=== PATIENT | female | born 1935 | race Caucasian/White ===

== ENCOUNTER 2017-08-28 16:12 | Emergency (ER) | payer MEDICARE, SELFPAY ==
[2017-08-28 16:13] VITALS: BP 142/64; PULSE 64; RESP 14; TEMP 36.9; O2SAT 97; BMI 24.6
[2017-08-28 16:16] VITALS: O2SAT 97
--- NOTE | 2017-08-28 16:23 | CT_ITS ---
STUDY: CT BRAIN WITHOUT CONTRAST REASON FOR EXAM: Female, 81 years old. Fall at [facility] living. RADIATION DOSAGE (If Supplied By Facility): CTDIvol = ( 60.81 ) mGy, DLP = ( 1112.69 ) mGycm TECHNIQUE: Transaxial CT imaging of the brain was performed without administration of intravenous contrast material. Individualized dose optimization techniques were used for this CT. COMPARISON: August 26, 2016. FINDINGS: Normal soft tissue structures. Normal calvarium. There is moderate cerebral atrophy with widening of the extra-axial spaces and ventricular dilatation. Normal white matter tracts of the cerebral hemispheres. Normal basal ganglia and thalami. Normal brainstem. Normal cerebellum. There is no intracranial hemorrhage. There are no findings of an acute ischemic infarction. Normal visualized paranasal sinuses. CT/Brain/Head without Contrast IMPRESSION: Chronic involutional changes of the brain. No hemorrhage. Electronically Signed: Driss Suazo MD at 16:59 EST , Service support ,
--- NOTE | 2017-08-28 16:23 | CT_ITS ---
STUDY: CT CERVICAL SPINE WITHOUT CONTRAST REASON FOR EXAM: Female, 81 years old. Fall. Dementia. Neck pain. RADIATION DOSAGE (If Supplied By Facility): CTDIvol = ( 18.91 ) mGy, DLP = ( 363.93 ) mGycm TECHNIQUE: High resolution transaxial imaging was performed without contrast material. Sagittal and coronal images were reconstructed. Individualized dose optimization techniques were used for this CT. COMPARISON: None FINDINGS: Normal craniovertebral junction. There are degenerative changes of the anterior atlantoaxial articulation. Normal odontoid process. Normal cervical lordosis. There is grade 1 anterior listhesis at C4-5 and C5-6. Normal vertebral bodies and posterior osseous elements. There is no fracture. C2-3: Normal endplates. Normal disc height and morphology. Normal central canal and intervertebral neuroforamina. Facet spurring C3-4: Normal endplates. Normal disc height and morphology. Normal central canal and intervertebral neuroforamina. Facet spurring. C4-5: Disc bulge with mild spurring. Facet spurring. Right foraminal narrowing. C5-6: Normal endplates. Normal disc height and morphology. Normal central canal and intervertebral neuroforamina. Facet spurring on the right C6-7: Disc space narrowing. Disc bulge and spurring. Left foraminal narrowing. C7-T1: Normal endplates. Normal disc height and morphology. Normal central canal and intervertebral neuroforamina. There are atherosclerotic calcifications. There is 3.0 cm diminished density left thyroid nodule. CT/Spine Cervical without Contras IMPRESSION: Multilevel degenerative changes, as described above. Electronically Signed: Driss Suazo MD at 17:05 EST , Service support ,
--- NOTE | 2017-08-28 16:26 | ED.VISSUMM ---
- ER Visit Summary Date of Service: 08/28/17 Chief Complaint: Fall with neck pain History of Present Illness: The patient is a 81 F with a history of Alzheimer's dementia. [facility] There is no loss of consciousness. Report is that the patient was complaining of some neck pain. She is not on any anticoagulants. Physical Examination: Vital signs are unremarkable. Head neck examination was a small hematoma in the left posterior parietal scalp. No lacerations are noted. She has mild C-spine tenderness on exam. Heart is regular rate and rhythm. Lung sounds are clear. Abdomen is soft nontender. Patient is moving all 4 extremities without difficulty. Test Results: CT scan of the head reveals chronic involutional changes. CT the C-spine shows multilevel degenerative changes. Emergency Department Course and Treatment: Patient is resting comfortably on repeat exam. Patient be discharged back to her ECF. I have asked nursing staff to verify that this is her baseline mental status with her dementia. Treatment Plan: [] Disposition: Discharge Impression: Witnessed fall with closed head injury This note was generated with [employer] dictation software. It may contain incorrect words, spelling, and punctuation that were not noted in review of the chart prior to signing ED Disposition - Plan for ED Patient: Chief Complaint: Fall Referrals: Ruma Gutiérrez MD [Primary Care Provider] -
--- NOTE | 2017-08-28 17:27 | ED.DEP ---
ED Disposition - Plan for ED Patient: Disposition: Home or Assisted Living Chief Complaint: Fall Instructions: ED Mechanical Fall, ED Head Injury Closed Referrals: Ruma Gutiérrez MD [Primary Care Provider] - As Needed
[2017-08-28 17:40] VITALS: BP 130/68; PULSE 66; RESP 16; O2SAT 98
--- NOTE | 2017-08-28 17:42 | ED.RN ---
report called to nurse Hawthorne at [place]. Updated that all scans are negative, and that d/c instructions are in packet. Denies any questions
== END 2017-08-28 18:10 | disposition home or self-care (01) ==
PROVIDERS: Emergency Provider Emergency Medicine; Family Provider Family Medicine; PCP Family Medicine
DX: S00.03XA Contusion of scalp, initial encounter (principal); W19.XXXA Unspecified fall, initial encounter; Y93.9 Activity, unspecified; Y92.129 Unspecified place in nursing home as the place of occurrence of the external cause; Y99.9 Unspecified external cause status; G30.9 Alzheimer's disease, unspecified; F02.80 Dementia in other diseases classified elsewhere, unspecified severity, without behavioral disturbance, psychotic disturbance, mood disturbance, and anxiety; K21.9 Gastro-esophageal reflux disease without esophagitis; F32.9 Major depressive disorder, single episode, unspecified; F41.9 Anxiety disorder, unspecified; Z79.899 Other long term (current) drug therapy
CPT/HCPCS: 70450; 72125; 99284

== ENCOUNTER → 2017-09-06 06:30 | Outpatient (REF) | payer MEDICARE, SELFPAY ==
[2017-09-06 08:39] LABS: Color, Urine Yellow (Yellow); Glucose, Dipstick Normal (Normal); Ketone-Dipstick Negative (Negative); Leukocyte Esterase-Dipstick 500 /ul (Negative); Nitrite-Dipstick Positive (Negative); Occult Blood-Urine 25 /ul (Negative); Protein-Dipstick Negative (Negative); Specific Gravity, Urine 1.015 (1.002-1.030); Urine Bilirubin Dipstick Negative (Negative); Urine Clarity Cloudy (Clear); Urine Urobilinogen Normal (Normal)
== END ==
LOC: OLS.BROOKB 06:30
PROVIDERS: Visit Provider Family Medicine
DX: N39.0 Urinary tract infection, site not specified (principal)
CPT/HCPCS: 81002; 87086; 87088; 87186

== ENCOUNTER 2017-10-24 05:51 | Emergency (ER) | payer MEDICARE, SELFPAY ==
[2017-10-24 05:52] VITALS: BP 119/58; PULSE 58; RESP 18; TEMP 36.6; O2SAT 98; BMI 23.6
--- NOTE | 2017-10-24 05:52 | CT_ITS ---
STUDY: CT BRAIN WITHOUT CONTRAST REASON FOR EXAM: Female, 81 years old. Status post fall. Large bump to the left posterior head. History of dementia. RADIATION DOSAGE (If Supplied By Facility): CTDIvol = ( 44.99 ) mGy, DLP = ( 829.85 ) mGycm TECHNIQUE: Transaxial CT imaging of the brain was performed without administration of intravenous contrast material. Individualized dose optimization techniques were used for this CT. COMPARISON: 08/28/2017. FINDINGS: There is a left posterior scalp contusion. Normal calvarium. There is moderate cerebral atrophy with widening of the extra-axial spaces and ventricular dilatation. There are areas of decreased attenuation within the white matter tracts of the supratentorial brain, consistent with microvascular disease changes. Normal basal ganglia and thalami. Normal brainstem. Normal cerebellum. There is atherosclerotic calcification of the vertebral and cavernous carotid arteries. There is no intracranial hemorrhage. There are no findings of an acute ischemic infarction. There is a small polyp or retention cyst in the right maxillary sinus and there is mild mucoperiosteal thickening in bilateral ethmoid sinuses, consistent with chronic disease. There is no evidence for acute sinusitis. CT/Brain/Head without Contrast IMPRESSION: Chronic involutional changes of the brain. No demonstrated acute intracranial process. Electronically Signed: Sharad Wilcox MD at 6:40 EDT , Service support ,
--- NOTE | 2017-10-24 05:52 | CT_ITS ---
STUDY: CT CERVICAL SPINE WITHOUT CONTRAST REASON FOR EXAM: Female, 81 years old. Status post fall. Large bump in the left posterior head. Dementia. RADIATION DOSAGE (If Supplied By Facility): CTDIvol = ( 13.72 ) mGy, DLP = ( 254.35 ) mGycm TECHNIQUE: High resolution transaxial imaging was performed without contrast material. Sagittal and coronal images were reconstructed. Individualized dose optimization techniques were used for this CT. COMPARISON: 08/28/2017. FINDINGS: Normal craniovertebral junction. There is hypertrophy of the transverse ligament of the atlas with mild posterior displacement of the superior and inferior longitudinal fibers of the cruciform ligament, producing minimal ventral thecal sac flattening, but without cervical cord impingement. There are degenerative changes in the anterior atlantoaxial articulation. Normal odontoid process. Normal cervical lordosis. Normal vertebral bodies and posterior osseous elements. C2-3: Normal endplates. Small broad posterior disc protrusion. Degenerative changes bilateral apophyseal joints.. Normal central canal and intervertebral neuroforamina. C3-4: 1 mm anterolisthesis, on a degenerative basis. Normal endplates. Small broad posterior disc protrusion. Degenerative changes apophyseal joints.. Normal central canal. Mild narrowing bilateral intervertebral neuroforamina. C4-5: 2 mm anterolisthesis, on a degenerative basis. Spondylosis.. Normal disc height and morphology. Degenerative changes of uncovertebral and apophyseal joints. Normal central canal. Moderate narrowing right and normal left intervertebral neuroforamina. C5-6: 2 mm anterolisthesis, on a degenerative basis. Spondylosis.. Normal disc height and morphology. Degenerative changes uncovertebral joints and apophyseal joints. Normal central canal. Mild narrowing right and normal left intervertebral neuroforamina. C6-7: 1 mm anterolisthesis, on a degenerative basis. Spondylosis. Disc space narrowing. Small broad posterior disc osteophyte complex. Degenerative changes uncovertebral joints and apophyseal joints.. Normal central canal. Normal right and mild narrowing left intervertebral neuroforamina. C7-T1: Normal endplates. Normal disc height and morphology. Degenerative changes apophyseal joints. Normal central canal and intervertebral neuroforamina. Normal visualized soft tissue structures. CT/Spine Cervical without Contras IMPRESSION: Multilevel degenerative changes, as described above. No demonstrated fracture. Electronically Signed: Sharad Wilcox MD at 6:50 EDT , Service support ,
--- NOTE | 2017-10-24 05:54 | ED.DCSUM_ITS ---
- ER Visit Summary Date of Service: 10/24/17 Chief Complaint: [] Fall with head injury History of Present Illness: The patient is a 81 F patient was found outside her room on the ground. She has a history of dementia and does not remember what happened. They noted she had a goose egg on the back of her head. She had some isolated soreness to this area. Denies any neck pain. She has no recollection of what happened. Physical Examination: Vital signs reviewed General: Well-nourished well-developed Head: 3 cm x 3 cm circular golf ball size hematoma left posterior parietal scalp. Eyes: Pupils equal round and reactive to light extraocular movements intact ENT: TMs clear no hemotympanum no trauma Neck: Nontender full range of motion Cardiovascular: Regular rate rhythm no murmurs normal S1-S2 Respiratory: No distress clear to auscultation bilaterally chest nontender Abdomen: Soft nontender nondistended normal bowel sounds no masses Back: Nontender no CVA tenderness Extremities: Nontender active range of motion ?4 extremities no trauma Skin: Normal color no trauma Neuro alert oriented cranial nerves II through XII intact normal strength sensation reflexes Test Results: [] Emergency Department Course and Treatment: [] CT head and neck obtained. There are negative. X-ray of the elbow shows nothing acute. at Time I do not feel the patient is lab work or further imaging. She will follow-up as an outpatient. Treatment Plan: [] Disposition: [] Impression: [] Scalp hematoma status post fall Left elbow skin tear abrasion status post fall Head injury status post fall This note was generated with [employer] dictation software. It may contain incorrect words, spelling, and punctuation that were not noted in review of the chart prior to signing ED Disposition - Plan for ED Patient: Chief Complaint: Fall Referrals: Ruma Gutiérrez MD [Primary Care Provider] -
--- NOTE | 2017-10-24 05:59 | RAD_ITS ---
STUDY: X-RAY - LEFT ELBOW REASON FOR EXAM: Female, 81 years old. Status post fall. Posterior elbow skin tear. TECHNIQUE: 4 view(s) of the elbow. COMPARISON: None. FINDINGS: Normal visualized humerus, radius and ulna. Normal radiocapitellar and ulnotrochlear articulations. There is a skin calcification the medial upper arm. RAD/Elbow min 3 Views IMPRESSION: Normal x-ray examination of the elbow. Electronically Signed: Sharad Wilcox MD at 6:53 EDT , Service support ,
--- NOTE | 2017-10-24 06:20 | ED.DEP ---
ED Disposition - Plan for ED Patient: Disposition: Home or Assisted Living Chief Complaint: Fall Instructions: ED Fall Uncertain Cause, ED Hematoma, ED Head Injury Closed Referrals: Ruma Gutiérrez MD [Primary Care Provider] -
[2017-10-24] MEDS: Acetaminophen 325 MG Tablet 650 MG PO (06:47)
--- NOTE | 2017-10-24 07:11 | NURSING ---
ATTEMPTED TO NOTIFY NEXT OF KIN AND PERSON TO NOTIFY, BOTH PHONE NUMBERS ARE LAW OFFICES; NO ANSWER WHEN CALLED.
[2017-10-24 08:02] VITALS: BP 145/61; PULSE 64; RESP 14; TEMP 36.3; O2SAT 98
== END 2017-10-24 08:04 | disposition home or self-care (01) ==
PROVIDERS: Emergency Provider Emergency Medicine; Family Provider Family Medicine; PCP Family Medicine
DX: S00.03XA Contusion of scalp, initial encounter (principal); S51.012A Laceration without foreign body of left elbow, initial encounter; W18.30XA Fall on same level, unspecified, initial encounter; Y93.9 Activity, unspecified; Y92.9 Unspecified place or not applicable; Y99.9 Unspecified external cause status; Z79.899 Other long term (current) drug therapy
CPT/HCPCS: 70450; 72125; 73080; 99284

== ENCOUNTER → 2018-01-11 15:30 | Outpatient (REF) | payer MEDICARE, SELFPAY ==
[2018-01-11 21:51] LABS: Color, Urine Yellow (Yellow); Glucose, Dipstick Normal (Normal); Ketone-Dipstick Negative (Negative); Leukocyte Esterase-Dipstick 500 /ul (Negative); Nitrite-Dipstick Positive (Negative); Occult Blood-Urine 50 /ul (Negative); Protein-Dipstick Negative (Negative); Specific Gravity, Urine 1.025 (1.002-1.030); Urine Bilirubin Dipstick Negative (Negative); Urine Clarity Sl. Cloudy (Clear); Urine Urobilinogen Normal (Normal)
== END ==
PROVIDERS: Visit Provider Family Medicine
DX: N39.0 Urinary tract infection, site not specified (principal)
CPT/HCPCS: 81002; 87077; 87086; 87088; 87186

== ENCOUNTER → 2018-01-26 13:00 | Outpatient (REF) | payer MEDICARE, SELFPAY ==
[2018-01-27 07:49] LABS: Color, Urine Yellow (Yellow); Glucose, Dipstick Normal (Normal); Ketone-Dipstick Negative (Negative); Leukocyte Esterase-Dipstick 25 /ul (Negative); Nitrite-Dipstick Negative (Negative); Occult Blood-Urine 25 /ul (Negative); Protein-Dipstick Negative (Negative); Urine Bilirubin Dipstick Negative (Negative); Urine Clarity Clear (Clear); Urine Urobilinogen Normal (Normal)
== END ==
LOC: OLS.BROOKB 13:00
PROVIDERS: Visit Provider Family Medicine
DX: N39.0 Urinary tract infection, site not specified (principal)
CPT/HCPCS: 81002; 87086; 87088

== ENCOUNTER 2018-02-25 07:17 | Emergency (ER) | payer MEDICARE, SELFPAY ==
[2018-02-25 07:18] VITALS: BP 160/54; PULSE 50; RESP 16; TEMP 37.3; O2SAT 97; BMI 25.5
--- NOTE | 2018-02-25 07:26 | RAD_ITS ---
STUDY: X-RAY - PELVIS AND RIGHT HIP REASON FOR EXAM: Female, 82 years old. Right-sided hip pain after fall. TECHNIQUE: Radiological exam, hip, unilateral, with pelvis when performed; 2 or 3 views. COMPARISON: Prior comparable comparison studies are not available for review at this time. FINDINGS: There is a non-specific bowel gas pattern. There are multiple calcified phleboliths. There is diffuse demineralization of the osseous structures. The sacrum and iliac wings are obscured by bowel gas. Normal bilateral superior and inferior pubic rami. Normal pubic symphysis. Normal bilateral ischial tuberosities. The patient has had bilateral total hip arthroplasties. There appears to be erosion of the left acetabular prosthesis into the acetabulum. This is probably a chronic process. There is deformity of the right greater trochanter probably represents sequela of old fracture. RAD/HIP, UNI W/ Pelvis 2-3 Views IMPRESSION: 1. Osteoporosis. 2. Sequela of bilateral total hip arthroplasties. 3. Erosive changes of the left acetabulum. 4. Sequela of an old fracture of the right greater trochanter. Electronically Signed: Carolina Jackson MD at 8:12 EDT , Service support ,
--- NOTE | 2018-02-25 07:29 | ED.VISSUMM ---
- ER Visit Summary Date of Service: 02/25/18 Chief Complaint: Fall History of Present Illness: The patient is a 82 F who presents after a fall at the [facility] today. Staff noticed that the patient fell onto a fall pad. Staff felt that the patient's right lower extremity was shortened and externally rotated. Patient does not appear to be in any pain. Patient is alert and oriented to person only. Patient is a poor historian. Physical Examination: Vital signs are stable. Patient is afebrile. Patient is in no acute distress. Musculoskeletal exam reveals mild tenderness over the right hip. There is no deformity noted. There is no shortening or external rotation. There is good range of motion of the right hip. Pedal pulses are equal bilaterally. There are no apparent sensory deficits noted. The remaining physical exam is within normal limits. Test Results: X-rays of the right hip were obtained. There are bilateral hip prosthesis. There is no dislocation noted. These were interpreted by the radiologist and reviewed by myself. Emergency Department Course and Treatment: Patient was discharged back to the [facility]. ECF was instructed to use ice packs to the area as needed for pain. ECF was instructed to continue her prior medications as previously prescribed. Disposition: Discharged Impression: Right hip contusion This note was generated with [employer] dictation software. It may contain incorrect words, spelling, and punctuation that were not noted in review of the chart prior to signing ED Disposition - Plan for ED Patient: Disposition: Custodial Facility Chief Complaint: Lower Extremity Injury Diagnosis: Contusion of right hip, initial encounter Instructions: ED Contusion Hip Referrals: Ruma Gutiérrez MD [Primary Care Provider] -
--- NOTE | 2018-02-25 07:35 | ED.RN ---
PT REMOVED FROM THE EMS SERVER. NO DISTRESS OR SIGNS OF PAIN NOTED. PT'S PANTS REMOVED AND AGAIN NO SIGN OF DISTRESS DISCOMFORT NOTED. RIGHT HIP ROTATED AND NO DISCOMFORT NOTED. NO LIMITATIONS NOTED. NO ABRASIONS OR BRUISING NOTED. PT RESTING COMFORTABLY AT THIS TIME.
--- NOTE | 2018-02-25 07:45 | ED.DCSUM_ITS ---
- ER Visit Summary Date of Service: 02/25/18 Chief Complaint: Fall History of Present Illness: The patient is a 82 F who presents after a fall at the [facility] today. Staff noticed that the patient fell onto a fall pad. Staff felt that the patient's right lower extremity was shortened and externally rotated. Patient does not appear to be in any pain. Patient is alert and oriented to person only. Patient is a poor historian. Physical Examination: Vital signs are stable. Patient is afebrile. Patient is in no acute distress. Musculoskeletal exam reveals mild tenderness over the right hip. There is no deformity noted. There is no shortening or external rotation. There is good range of motion of the right hip. Pedal pulses are equal bilaterally. There are no apparent sensory deficits noted. The remaining physical exam is within normal limits. Test Results: X-rays of the right hip were obtained. There are bilateral hip prosthesis. There is no dislocation noted. These were interpreted by the radiologist and reviewed by myself. Emergency Department Course and Treatment: Patient was discharged back to the [facility]. ECF was instructed to use ice packs to the area as needed for pain. ECF was instructed to continue her prior medications as previously prescribed. Disposition: Discharged Impression: Right hip contusion This note was generated with [employer] dictation software. It may contain incorrect words, spelling, and punctuation that were not noted in review of the chart prior to signing ED Disposition - Plan for ED Patient: Disposition: Prison Facility Chief Complaint: Lower Extremity Injury Diagnosis: Contusion of right hip, initial encounter Instructions: ED Contusion Hip Referrals: Ruma Gutiérrez MD [Primary Care Provider] -
[2018-02-25 08:22] VITALS: BP 118/75; PULSE 71; RESP 15; O2SAT 98
== END 2018-02-25 08:52 | disposition skilled nursing facility (03) ==
PROVIDERS: Emergency Provider Emergency Medicine; Family Provider Family Medicine; PCP Family Medicine
DX: S70.01XA Contusion of right hip, initial encounter (principal); W19.XXXA Unspecified fall, initial encounter; Y93.9 Activity, unspecified; Y92.9 Unspecified place or not applicable; Y99.9 Unspecified external cause status; F03.90 Unspecified dementia, unspecified severity, without behavioral disturbance, psychotic disturbance, mood disturbance, and anxiety; Z79.899 Other long term (current) drug therapy; Z96.643 Presence of artificial hip joint, bilateral
CPT/HCPCS: 73502; 99284